=== PATIENT | female | born 1995 | race American Indian/Alaskan Native ===

== ENCOUNTER 2020-07-25 08:16 | Day surgery (SDC) | payer MEDICAID ==
[~2020-07-25 08:16] MED LIST: SODIUM CHLORIDE 0.9% 1000 ML 1,000 ML IV SCH
[2020-07-25] MEDS ORDERED: propofoL 200 MG/20 ML VIAL IV ONE ×2 (09:15→09:26)
[2020-07-25] MEDS ORDERED: LIDOCAINE MPF (2%) 20 MG/1 ML VIAL 5 ML ONE (09:15)
--- NOTE | 2020-07-25 09:22 | Anesthesia Day of Surgery ---
Anesthesia Day of Surgery - Day of Surgery Patient Examined: Yes Patient H&P Reviewed: Yes Patient is NPO: Yes
--- NOTE | 2020-07-25 09:22 | Anesthesia Consultation ---
Anesthesia Consult and Med Hx Date of service: 07/25/20 - Airway Anesthetic Teeth Evaluation: Good ROM Head & Neck: Adequate Mental/Hyoid Distance: Adequate Mallampati Class: Class I Intubation Access Assessment: Probably Good - Pulmonary Exam CTA: Yes - Cardiac Exam Cardiac Exam: RRR - Pre-Operative Health Status ASA Pre-Surgery Classification: ASA3 Proposed Anesthetic Plan: MAC - Pulmonary Hx Smoking: Yes Hx Asthma: Yes (no recent inhaler use) Hx Respiratory Symptoms: No - Cardiovascular System Hx Hypertension: No Hx Cardia Arrhythmia: Yes (took metoprolol last night; follows with cardiology) Hx Pacemaker: No Hx Internal Defibrillator: No - Central Nervous System CVA: No Hx Back Pain: Yes - Endocrine Hx Renal Disease: No Hx Liver Disease: No Hx Insulin Dependent Diabetes: No Hx Non-Insulin Dependent Diabetes: No Hx Thyroid Disease: No - Other Systems Hx Obesity: Yes (BMI 38) - Additional Comments Anesthesia Medical History Comments: No hx anesthetic complications.
--- NOTE | 2020-07-25 09:48 | Procedure Note ---
Date of procedure: 07/25/20 Pre-op diagnosis: Dysphagia/ Dyspepsia Post-op diagnosis: other (Mild, Esophageal Stenosis (s/p Esophageal Balloon Dilation)/ Mild to moderate Erosive Esophagitis/ R/O Eosinophilic Esophagitis/ Gastritis/ No Peptic, Ulcer disease noted) Procedure: EGD with Biopsy and Esophageal Balloon dilation (20mm) Anesthesia: [facility] [place] Surgeon: KAMERON HERNANDEZ Estimated blood loss: minimal Specimen disposition: to lab Condition: stable Disposition: same day (Treat with PPI and Reglan. Avoid aspirin and NSAIDF for 4 days; otherwise resume home medication and follow up in 1 to 2 weeks ([phone]).)
--- NOTE | 2020-07-25 09:48 | Operative Report ---
PROCEDURE: Esophagogastroduodenoscopy with biopsy and balloon dilation. INDICATIONS: This is a 24-year-old obese female who has status post cholecystectomy. Lately, has been complaining of dysphagia and dyspeptic symptoms. EGD was done to assess for any significant upper GI pathology. DESCRIPTION OF PROCEDURE: The procedure was done after getting informed consent with MAC anesthesia. Instrument was passed through the hypopharynx into the esophagus, which showed mild benign esophageal stenosis. This was dilated at the end of the procedure with a 20 mm balloon. The stomach showed some mild gastritis. No ulcers were noted in the straight or the retroverted view. The pylorus was patent. The duodenum in the first and second portion appeared normal. Biopsy was done from the distal as well as from the mid esophagus to assess for the severity of the erosive esophagitis and for benign esophageal stenosis. Additional biopsy was done from the gastric antrum and the gastric body and angular incisura to rule out for H. pylori and atrophic gastritis. The pylorus was patent. Duodenum in the first and second portion appeared normal. There was minimal bleeding associated with the procedure. No complications associated with the procedure. ASSESSMENT: Dysphagia, mild benign esophageal stenosis, mild to moderate erosive esophagitis, rule out eosinophilic esophagitis, gastritis. PLAN: To treat the patient with PPI and also to treat the patient with Reglan and avoid aspirin and aspirin-related products. Await for the biopsy results. Further treatment adjustment will be according to the biopsy findings. The patient will be asked to follow up in the office in 1-2 weeks' time. Procedure was done in the GI lab with assistance of the GI lab team, which included RN, Elaine Douglas; Brando brown and with the assistance of anesthesia. JOB# [id number] JOSELUIS/JEFFERSON
--- NOTE | 2020-07-25 10:07 | Post Anesthesia Evaluation ---
- Post Anesthesia Evaluation Patient Participated: Yes Airway Patent: Yes Stable Respiratory Function: Yes Nausea/Vomiting: No Temp > 96.8F: Yes Pain Manageable: Yes Adequeate Hydration: Yes Anesthesia Complications: No
[2020-07-25 10:49] VITALS: BP 125/85
== END 2020-07-25 11:05 | disposition home or self-care (01) ==
LOC: GIO 08:16
DX: R13.10 Dysphagia, unspecified (principal); K30 Functional dyspepsia; K22.2 Esophageal obstruction; K31.89 Other diseases of stomach and duodenum; K29.50 Unspecified chronic gastritis without bleeding; B96.81 Helicobacter pylori [H. pylori] as the cause of diseases classified elsewhere; I42.9 Cardiomyopathy, unspecified; J45.909 Unspecified asthma, uncomplicated; K21.00 Gastro-esophageal reflux disease with esophagitis, without bleeding; E66.9 Obesity, unspecified; Z80.3 Family history of malignant neoplasm of breast; Z98.890 Other specified postprocedural states; Z79.899 Other long term (current) drug therapy
CPT/HCPCS: 43239; 43249; 81025; 88305; 88342; C1726; J2704; J7030

== ENCOUNTER 2020-12-29 18:47 | Emergency (ER) | payer MEDICAID | END 2020-12-29 23:00 | disposition left against medical advice (07) | LOC: ED 18:47 | DX: M54.9 Dorsalgia, unspecified (principal); Z53.21 Procedure and treatment not carried out due to patient leaving prior to being seen by health care provider; V89.2XXA Person injured in unspecified motor-vehicle accident, traffic, initial encounter; Y93.89 Activity, other specified; Y92.89 Other specified places as the place of occurrence of the external cause; Y99.8 Other external cause status ==